=== PATIENT | female | born 1995 | race Caucasian/White ===

== ENCOUNTER 2017-04-14 22:54 | Emergency (ER) | payer OTHER ==
[2017-04-15] MEDS: IBUPROFEN 200 MG TAB PO (02:01)
[2017-04-15] MEDS: ACETAMINOPHEN 325 MG TAB PO (02:17)
== END 2017-04-15 02:54 | disposition home or self-care (01) ==
LOC: FTE 22:54
DX: J11.1 Influenza due to unidentified influenza virus with other respiratory manifestations (principal)
CPT/HCPCS: 99283; Z7502

== ENCOUNTER 2018-01-23 22:55 | Emergency (ER) | payer OTHER ==
[2018-01-24] MEDS: ACETAMINOPHEN 325 MG TAB PO (02:04)
[2018-01-24] MEDS: KETOROLAC 15 MG INJ IM (02:06)
== END 2018-01-24 02:47 | disposition home or self-care (01) ==
LOC: FTE 22:55
DX: S00.03XA Contusion of scalp, initial encounter (principal); R11.0 Nausea; W22.8XXA Striking against or struck by other objects, initial encounter; Y92.89 Other specified places as the place of occurrence of the external cause
CPT/HCPCS: 81025; 96372; 99284-25